=== PATIENT | male | born 1980 | race Caucasian/White ===

== ENCOUNTER 2016-09-24 21:58 | Emergency (ER) | payer BC, OTHER ==
[2016-09-24 22:20] VITALS: BP 120/80; PULSE 74; TEMP 98.3; BMI 30.7
--- NOTE | 2016-09-24 23:20 | PDOC ---
History of Present Illness - General History Source: Patient, Old Records Exam Limitations: No Limitations - History of Present Illness Initial Comments: 09/24/16 23:58 The patient is a 36 year old male, with no significant past medical history, who presents to the emergency department with worsening intermittent abdominal pain since yesterday. The patient describes the pain as sharp and states that the pain is primarily located on the right side of his abdomen. The patient rates the pain as a 5/10 in severity. The patient denies fever, chills, nausea, vomiting, diarrhea, constipation or melena/bpr. The patient denies any flank pain or dysuria. Allergies: None reported. Past Surgical History: None reported. Social History: Non smoker. Reports occasional alcohol consumption. Denies drug use. PCP: Dr. Glenn Gilman <Sepideh Sweeney - Last Filed: 09/24/16 23:58> <Ramez Connell - Last Filed: 09/25/16 00:23> - General Chief Complaint: Pain, Acute Stated Complaint: PAIN, ACUTE Time Seen by Provider: 09/24/16 23:18 Past History <Sepideh Sweeney - Last Filed: 09/24/16 23:58> - Past Medical History GI Disorders: Yes (enlarged spleen) Suicide Attempt (Hx): No - Psycho/Social/Smoking Cessation Hx Anxiety: No Suicidal Ideation: No Smoking Status: No Smoking History: Never smoked Have you smoked in the past 12 months: No Number of Cigarettes Smoked Daily: 0 Hx Alcohol Use: No Drug/Substance Use Hx: No Substance Use Type: None <Ramez Connell - Last Filed: 09/25/16 00:23> - Past Medical History Allergies/Adverse Reactions: Allergies Allergy/AdvReac Type Severity Reaction Status Date / Time No Known Allergies Allergy Verified 09/24/16 22:17 Home Medications: Ambulatory Orders Amoxicillin - [Amoxicillin 500mg Capsule -] 500 mg PO BID 09/24/16 Abd/GI Specific PMHX - Complaint Specific PMHX Colitis: No Diverticulitis: No Gall Bladder Disease: No GERD: No Hepatitis: No Irritable Bowel Synd (IBS): No Pancreatitis: No <Ramez Connell - Last Filed: 09/25/16 00:23> Review of Systems - Review of Systems Able to Perform ROS?: Yes Comments:: 09/24/16 23:42 CONSTITUTIONAL: No fever, no chills, no fatigue EYES: No visual changes ENT: No ear pain, no sore throat CARDIOVASCULAR: No chest pain, no palpitations RESPIRATORY: No cough, no SOB GI: +Abdominal pain. No nausea, no vomiting, no constipation, no diarrhea GENITOURINARY: No dysuria, no frequency, no hematuria MUSKULOSKELETAL: No back pain, no joint pain, no myalgias SKIN: No rash NEURO: No headache <Sepideh Sweeney - Last Filed: 09/24/16 23:58> *Physical Exam - Vital Signs Last Vital Signs Temp Pulse Resp BP Pulse Ox 98.3 F 74 16 120/80 98 09/24/16 22:19 09/24/16 22:19 09/24/16 22:19 09/24/16 22:19 09/24/16 22:19 - Physical Exam Comments: 09/24/16 23:45 CONSTITUTIONAL: Well-appearing; well-nourished; in no apparent distress. HEAD: Normocephalic; atraumatic. EYES: PERRL; EOM intact. ENMT: External appears normal; normal oropharynx. NECK: Supple; non-tender; no cervical lymphadenopathy. CARD: Normal S1, S2; no murmurs, rubs, or gallops. RESP: Normal chest excursion with respiration; breath sounds clear and equal bilaterally; no wheezes, rhonchi, or rales. ABD: Soft, non-distended; non-tender; no palpable organomegaly, no palpable hernias. EXT: Normal ROM in all four extremities; non-tender to palpation; distal pulses intact. SKIN: Warm, dry, no rash. NEURO: No focal neurological deficiencies. Normal speech, normal gait. <Sepideh Sweeney - Last Filed: 09/24/16 23:58> - Vital Signs Last Vital Signs Temp Pulse Resp BP Pulse Ox 98.3 F 74 16 120/80 98 09/24/16 22:19 09/24/16 22:19 09/24/16 22:19 09/24/16 22:19 09/24/16 22:19 <Ramez Connell - Last Filed: 09/25/16 00:23> Medical Decision Making - Medical Decision Making 09/25/16 00:21 Patient is well-appearing 36-year-old male who presents with an episode of right -sided abdominal pain that lasted momentarily and resolved spontaneously prior to arrival without associated nausea/ vomiting/ diarrhea/dysuria or hematuria. In the ER, patient is awake and alert, resting comfortably, symptom-free. Serial abdominal exams reveal no focal tenderness. Urinalysis reveals no evidence of pyuria or hematuria. I do not suspect acute appendicitis or colitis or nephrolithiasis at this time. Will discharge patient with strict right lower quadrant instructions with PMD follow-up as needed. <Ramez Connell - Last Filed: 09/25/16 00:23> *DC/Admit/Observation/Transfer - Attestations Scribe Attestion: 09/24/16 23:30 Documentation prepared by Sepideh Sweeney, acting as medical insurance coding specialist for Ramez Connell MD. <Sepideh Sweeney - Last Filed: 09/24/16 23:58> - Attestations Physician Attestion: 09/25/16 00:21 The documentation was prepared by the scribe under my direct supervision. I have reviewed the documentation which correctly represents the findings, medical decision-making and critical action taken by me. <Ramez Connell - Last Filed: 09/25/16 00:23> Diagnosis at time of Disposition: Abdominal pain Qualifiers: Abdominal location: right lower quadrant Qualified Code(s): R10.31 - Right lower quadrant pain - Discharge Dispostion Disposition: HOME Condition at time of disposition: Stable - Referrals Referrals: Glenn Gilman MD [Primary Care Provider] - - Patient Instructions Printed Discharge Instructions: DI for Abdominal Pain-Adult
[2016-09-24 23:57] LABS: URINE APPEARANCE CLEAR; URINE BILIRUBIN NEGATIVE (NEGATIVE); URINE BLOOD NEGATIVE (NEGATIVE); URINE COLOR LTYELLOW; URINE GLUCOSE (UA) NEGATIVE (NEGATIVE); URINE KETONE NEGATIVE (NEGATIVE); URINE LEUK ESTERASE NEGATIVE (NEGATIVE); URINE NITRITE NEGATIVE (NEGATIVE); URINE PROTEIN NEGATIVE (NEGATIVE); URINE UROBILINOGEN NEGATIVE E.U./dl (0.2-1.0)
== END 2016-09-25 00:29 | disposition home or self-care (01) ==
LOC: JER 21:58
DX: R10.31 Right lower quadrant pain (principal); R16.1 Splenomegaly, not elsewhere classified
CPT/HCPCS: 81003; 99281-25